=== PATIENT | female | born 1980 | race Caucasian/White ===

== ENCOUNTER 2018-06-22 10:30 | Outpatient (CLI) | payer OTHER | END 2018-06-22 15:15 | disposition home or self-care (01) | LOC: SONOGRAMA 10:30 → RX STUDY 12:15 → SONOGRAMA 15:15 | DX: N84.0 Polyp of corpus uteri (principal); N92.5 Other specified irregular menstruation ==

== ENCOUNTER 2018-07-21 11:29 | Day surgery (SDC) | payer OTHER ==
[2018-07-21] MEDS ORDERED: KETO10TA2 PO (16:12)
== END 2018-07-21 22:35 | disposition home or self-care (01) ==
LOC: CIR.AMB 11:29
DX: N84.0 Polyp of corpus uteri (principal)

== ENCOUNTER → 2022-02-27 | Outpatient (CLI) | payer OTHER ==
[~2022-02-27] MED LIST: KETO10TA2 PO
== END | disposition home or self-care (01) ==
LOC: SONOGRAMA 10:18
PROVIDERS: ATTEND Obstetrics & Gynecology Obstetrics
DX: R31.9 Hematuria, unspecified (principal); N81.3 Complete uterovaginal prolapse

== ENCOUNTER 2023-01-25 09:19 | Inpatient (IN) | payer OTHER ==
[~2023-01-25] VITALS: Ht 160 cm; Wt 68.0 kg
[2023-01-29] MEDS ORDERED: Tylenol #3 PO (09:05)
[2023-01-29] MEDS ORDERED: NAPR500T14 PO (09:05)
== END 2023-01-29 13:13 | disposition home or self-care (01) | DRG 743 ==
LOC: SURG 01-28 08:45 → O/R 01-28 10:27 → SURG 01-28 10:30 → SURH 01-28 20:22
PROVIDERS: ADMIT Obstetrics & Gynecology; ATTEND Obstetrics & Gynecology
PROC: 0JQC0ZZ Repair Pelvic Region Subcutaneous Tissue and Fascia, Open Approach (ICD-10-PCS; 2023-01-28)
PROC: 0USG0ZZ Reposition Vagina, Open Approach (ICD-10-PCS; 2023-01-28)
PROC: 0TJB8ZZ Inspection of Bladder, Via Natural or Artificial Opening Endoscopic (ICD-10-PCS; 2023-01-28)
PROC: 0UT97ZZ Resection of Uterus, Via Natural or Artificial Opening (ICD-10-PCS; principal; 2023-01-28 10:30)
DX: D25.1 Intramural leiomyoma of uterus (principal); N81.3 Complete uterovaginal prolapse; N72 Inflammatory disease of cervix uteri; Z20.822 Contact with and (suspected) exposure to COVID-19